=== PATIENT | male | born 1945 | race Two or more races ===

== ENCOUNTER 2017-01-15 09:42 | Inpatient (IN) | payer MEDICARE, MEDICAID ==
[~2017-01-15] VITALS: Ht 170.2 cm; Wt 106.3 kg
--- NOTE | 2017-01-15 09:50 | NUR ---
PT CAME IN FOR FEVER X 3 DAYS, WEAKNESS, MINIMAL SOB AND REPORTED TO HAVE SYNCOPAL EPISODE LAST WEEK AND HIT HIS NOSE AND MOUTH. DENIES HEAD TRAUMA. PT AOOX3. FEBRILE 100.0, SATING AT 85% RA. AT BS FOR EVAL. AND FAMILY FRIEND AT BS FOR INFO. SAFETY AND COMFORT MEASURES PROVIDED. WILL MONITOR.
[2017-01-15] MEDS ORDERED: IV NS 0.9% 1,000 ML BAG IV ONE (10:00)
[2017-01-15] MEDS ORDERED: IV SET PRIMARY PUMP SET 1 EA INFUS.SET MC ONE ×3 (10:08→15:25)
[2017-01-15] MEDS ORDERED: IV NS 0.9% 1,000 ML ONE (10:08)
--- NOTE | 2017-01-15 10:20 | NUR ---
IV ACCESS STARTED. PT MEDICATED ORDERED.
[2017-01-15 10:35] LABS: BASOPHILS # (AUTO) 0.2 /CMM (0.0-0.2); BASOPHILS % (AUTO) 1.9 % (0.0-2.0); EOSINOPHILS % (AUTO) 0.1 % (0.0-6.0); HEMATOCRIT 39 % (39-51); HEMOGLOBIN 13.3 g/dL (13.5-17.5); LYMPHOCYTES # (AUTO) 0.3 /CMM (0.8-4.8); LYMPHOCYTES % (AUTO) 3.4 % (20.0-44.0); MEAN CORPUSCULAR HEMOGLOBIN 30 PG (26.0-33.0); MEAN CORPUSCULAR HGB CONC 34 g/dl (31.0-36.0); MEAN CORPUSCULAR VOLUME 89 fL (80-96); MONOCYTES # (AUTO) 0.3 /CMM (0.1-1.30); NEUTROPHILS % (AUTO) 91.6 % (43.0-81.0); PLATELET COUNT (AUTO) 148 /CMM (150-450); RDW COEFFICIENT OF VARIATION 12.7 (11.5-15.0); RED BLOOD CELL COUNT(AUTO) 4.42 MIL/uL (4.5-6.0); WHITE BLOOD COUNT (AUTO) 9.8 K/uL (4.3-11.0)
[2017-01-15 10:38] LABS: APPEARANCE,URINE Clear (CLEAR); BILIRUBIN,URINE MODERATE (NEGATIVE); BLOOD, URINE Moderate Ery/uL (NEGATIVE); COLOR,URINE Amber (YELLOW); KETONES,URINE Negative (NEGATIVE); LEUKOCYTE ESTERASE ,URINE Negative (NEGATIVE); NITRITE, URINE Negative (NEGATIVE); PH,URINE 6.5 (5.0-8.0); PROTEIN,URINE >=300 mg/dl (NEGATIVE); UGLUCOSE Negative (NEGATIVE)
[2017-01-15 10:40] LABS: CALCIUM, SERUM 8.2 mg/dL (8.5-10.1); CREATININE 2.1 mg/dL (0.6-1.3); POTASSIUM 3.9 mmol/L (3.5-5.1)
[2017-01-15 10:46] LABS: ALBUMIN 3.2 g/dL (3.4-5.0); BILIRUBIN,DIRECT 1.9 mg/dL (0.0-0.2); BILIRUBIN,TOTAL 2.5 mg/dL (0.2-1.0); TOTAL PROTEIN, SERUM 7.4 g/dL (6.4-8.2)
[2017-01-15 10:50] LABS: TROPONIN I 0.11 ng/mL (0.00-0.056)
[2017-01-15 10:56] LABS: BACTERIA,URINE Few /HPF (None Seen); SQUAMOUS EPITHELIAL CELL,UR Rare /HPF (None Seen)
[2017-01-15] MEDS ORDERED: ASPIRIN 325 MG TABLET PO ONE (11:00)
[2017-01-15] MEDS ORDERED: CEFTRIAXONE 1GM BAG (ER ONLY) 1 GM/50 ML PIGGYBACK IV ONE (11:00)
[2017-01-15] MEDS ORDERED: ASPIRIN 325 MG TABLET ONE (11:06)
[2017-01-15] MEDS ORDERED: CEFTRIAXONE 1GM BAG (ER ONLY) 50 ML IV ONE (11:06)
[2017-01-15 11:07] LABS: BAND % (MANUAL) 59 % (0.0-5.0); LYMPHOCYTES % (MANUAL) 6 % (16-48); MONOCYTES % (MANUAL) 4 % (0-11.0); NEUTROPHILS % (MANUAL) 31 (42-76)
[2017-01-15 11:15] LABS: INR 5.95 (0.87-1.13)
[2017-01-15] MEDS ORDERED: ROSU40TA PO (11:17)
[2017-01-15] MEDS ORDERED: LEVO125T8 PO (11:17)
[2017-01-15] MEDS ORDERED: LABE100T PO (11:17)
[2017-01-15] MEDS ORDERED: MYRBETRIQ PO (11:17)
[2017-01-15] MEDS ORDERED: DEXL60CA3 PO (11:17)
[2017-01-15] MEDS ORDERED: VALS320T13 PO (11:17)
[2017-01-15] MEDS ORDERED: EZET10TA PO (11:17)
[2017-01-15] MEDS ORDERED: LINA290C PO (11:17)
[2017-01-15] MEDS ORDERED: TERA5CAP4 PO (11:17)
[2017-01-15] MEDS ORDERED: ICOS1CAP PO (11:17)
[2017-01-15] MEDS ORDERED: METF500T4 PO (11:17)
[2017-01-15] MEDS ORDERED: CLON0.3T PO (11:17)
[2017-01-15] MEDS ORDERED: WARF5TAB6 PO (11:17)
[2017-01-15] MEDS ORDERED: TERA2CAP4 PO (11:21)
--- NOTE | 2017-01-15 11:28 | NUR ---
US TECH AT BS.
[2017-01-15] MEDS ORDERED: ACETAMINOPHEN ES 500 MG TABLET PO ONE (11:30)
--- NOTE | 2017-01-15 11:46 | NUR ---
REPORT GIVEN TO MATEO TAYLOR FOR TELE ROOM 322-1
--- NOTE | 2017-01-15 12:10 | NUR ---
BLACK TOP SPREADER MACHINE OPERATOR OPENING RECEIVED PATIENT A./OX4 DENIES PAIN SOB, DIFFICULTY BREATHING. PATIENT TEMP 99.0 DIAPHORETIC. WALKING WITHOUT ASSISTANCE; STAND BY USED. PATIENT TELE BEING APPLIED AND VITALS BEING TAKEN. PATIENT ASKING TO EAT AND DRINK. WILL CONFIRM DIET WITH MD. PATIENT STATES NO NEEDS FAMILY MEMBERS AT BEDSIDE. PATIENT APPEARS STABLE AT THIS TIME.
[2017-01-15] MEDS ORDERED: IV NS 0.9% 1,000 ML IV PRN (12:36)
--- NOTE | 2017-01-15 12:56 | NUR ---
DENTAL FRONT OFFICE ASSISTANT NOTES NOTIFIED DR TIM COAG LEVELS ELEVATED. PATIENT TELE NSR WITH PAC'S AND PVC'S
[2017-01-15] MEDS: CARVEDILOL 12.5 MG TABLET PO SCH ×2 (13:00→21:00)
[2017-01-15] MEDS ORDERED: HYDROCODONE/APAP 5/325MG 1 EACH TABLET PO PRN (13:00)
[2017-01-15] MEDS ORDERED: ACETAMINOPHEN 325 MG TABLET PO PRN (13:00)
[2017-01-15] MEDS ORDERED: Z GUARD REMEDY 2 OZ OINT TP PRN (13:00)
[2017-01-15] MEDS ORDERED: DEXTROSE 50%-WATER 50 ML DISP.SYRIN IV PRN (13:00)
[2017-01-15] MEDS: NITROGLYCERIN 30 GM TUBE TP SCH ×2 (13:00→21:32)
[2017-01-15] MEDS ORDERED: MAG HYDROX/AL HYDROX/SIMETH 30 ML UDC PO PRN (13:00)
[2017-01-15] MEDS ORDERED: HYDROCODONE/APAP 10/325MG 1 EA TABLET PO PRN (13:00)
[2017-01-15] MEDS: CLONIDINE HCL 0.1 MG TABLET PO SCH (13:14)
[2017-01-15] MEDS: hydrALAZINE HCL 50 MG TABLET PO SCH ×2 (13:14→16:13)
--- NOTE | 2017-01-15 13:29 | NUR ---
GREEN PIPEFITTER NOTES NOTIFIED DR NIÑO PATIENT TEMP 101. NO NEW ORDERS PER MD. CONTINUE COOLING MEASURES. MORE ICE APPLIED INBETWEEN GROIN AND UNDER ARMS. FAN PLACED IN PATIENT ROOM
[2017-01-15 13:30] VITALS: BP 144/73
[2017-01-15 14:29] LABS: CHOLESTEROL 157 mg/dL (<200); LDL 41 mg/dL (0-99); THYROID STIMULATING HORMONE 7.667 uIU/mL (0.358-3.74); TRIGLYCERIDES 903 mg/dL (30-150)
[2017-01-15 14:46] LABS: HDL CHOLESTEROL < 10 mg/dL (40-60)
--- NOTE | 2017-01-15 14:50 | NUR ---
SILVER CLEANER NOTES WILL BRING PATIENT MEDICATIONS. PATIENT BEING TAKEN DOWN FOR CT'S
[2017-01-15] MEDS ORDERED: IV NS 0.9% 1,000 ML BAG IV PRN (15:00)
[2017-01-15] MEDS ORDERED: SECONDARY IV SET 1 EA INFUS.SET MC ONE ×2 (15:25→17:05)
[2017-01-15] MEDS: IV NS 0.9% 1,000 ML IV PRN (15:37)
[2017-01-15 15:54] LABS: PHOSPHORUS 2.1 mg/dL (2.5-4.9)
[2017-01-15 15:59] LABS: MAGNESIUM 1.1 mg/dL (1.8-2.4)
[2017-01-15 16:00] VITALS: BP 129/22
--- NOTE | 2017-01-15 16:00 | NUR ---
PATENT LEGAL ASSISTANT NOTES PATIENT MAG 1.1 CALLED TO NOTIFY. MESSAGE TO MD FOR ORDERS
[2017-01-15] MEDS: PIPERACILLIN /TAZOBACTAM 2.25 G in IV D5W 50 ML IV SCH ×2 (16:11→22:41)
[2017-01-15] MEDS ORDERED: Medication Not On Formulary EA (Icosapent Ethyl (Vascepa) 2 GM) PO SCH (17:00)
[2017-01-15] MEDS ORDERED: LABETALOL HCL (100MG) 100 MG TABLET PO SCH (17:00)
[2017-01-15] MEDS ORDERED: K PHOS NEUTRAL 250 MG TABLET PO ONE (17:00)
[2017-01-15] MEDS: Magnesium 1GM/D5W 100ML PREMIX 100 ML IV SCH ×4 (17:07→21:31)
[2017-01-15] MEDS: BLOOD SUGAR DIAGNOSTIC 1 EACH STRIP IN SCH ×2 (17:36→22:41)
--- NOTE | 2017-01-15 17:50 | NUR ---
POURED PIPE MAKER NOTES PATIENT STATES HIS SOB IS RETURNING SLIGHTLY. STATES HE HAS BEEN TAKING NASONEX DAILY TO HELP OPEN HIS AIRWAY. PER MD THIS IS OK TO ORDER. 2LPM NC ON FOR PATIENT COMFORT.
[2017-01-15] MEDS: INSULIN REGULAR, HUMAN 100 UNIT/ML 3 ML VIAL SQ PRN ×2 (18:00→22:48)
[2017-01-15] MEDS ORDERED: PIPERACILLIN /TAZOBACTAM 3.375 G in IV D5W 50 ML IV SCH (18:00)
--- NOTE | 2017-01-15 18:17 | NUR ---
WAXER TENDER NOTES CALLED PHARMACY TO HAVE NASONEX BROUGHT UP FOR PATIENT
--- NOTE | 2017-01-15 18:23 | NUR ---
RESERVOIR ENGINEERING ADVISOR CLOSING PATIENT STABLE NO COMPLICATIONS. SOB IS IMPROVED PER PATIENT. PRN NORCO GIVEN FOR NECK/SHOULDER MUSCLE PAIN THAT PATIENT HAS HAD SINCE HIS FALL. PATIENT FAMILY AT BEDSIDE. IVF ORDERED RUNNING. PATIENT AND FAMILY EDUCATED ON CARE PLAN AND UPDATE. NO NEEDS AT THIS TIME. CALL LIGHT IN REACH, BED LOWERED AND LOCKED, RAILS UPX3 FOR SAFETY AND WILL ENDORSE TO RN FOR LEIA. WILL ROUND PATIENT NEEDS UNTIL TRANSFER OF LEIA. EDUCATED PATIENT ON FALL PRECAUTIONS REMINDING NOT TO GET OUT OF BED UNLESS HE HAS SOMEONE STANDING NEXT TO HIM DUE TO RECENT FALL HX
[2017-01-15] MEDS: MOMETASONE FUROATE NASAL SUSP 17 GM BOTTLE SCH (18:25)
[2017-01-15 19:14] LABS: FREE PSA 1.79 ng/mL (0.00-45); PROSTATE SPECIFIC ANTIGEN SCR 17.09 ng/mL (0.00-4.00)
--- NOTE | 2017-01-15 19:30 | NUR ---
MS/RN OPENING NOTES PT AWAKE, ACCOMPANIED BY FAMILY: NAGI ([phone]) AND SON SAM ([phone]) PT IS ON 3LPM O2 VIA NC, BREATHING EVEN AND UNLABORED, NO S/S OF DISTRESS. DENIES PAIN. IV TO RIGHT HAND PATENT AND INTACT RUNNING IVF ORDERED. NO S/S OF INFILTRATION NOTED. 2 REMAINING BAGS OF MAGNESIUM NEEDED TO ADMINISTER. BED IN LOW/LOCKED POSITION, CALL LIGHT IN REACH. BED ALARM ON. WILL CONTINUE TO MONITOR
[2017-01-15 20:25] VITALS: BP 102/69
[2017-01-15] MEDS ORDERED: Medication Not On Formulary EA (Rosuvastatin Calcium (Crestor) 40 MG) PO SCH (22:00)
[2017-01-15] MEDS ORDERED: Medication Not On Formulary EA ([Myrbetriq] 25 MG) PO SCH (22:00)
[2017-01-15] MEDS ORDERED: EZETIMIBE 10 MG TABLET PO SCH (22:00)
[2017-01-15] MEDS: TERAZOSIN HCL 1 MG CAPSULE PO SCH (22:55)
--- NOTE | 2017-01-15 23:05 | NUR ---
MS/RN NOTES BLOOD PBMQZ=572, ADMINISTERED 3 UNITS PER SLIDING SCALE. SNACKS PROVIDED AT BEDSIDE. WILL CONTINUE TO MONITOR
[2017-01-16] VITALS (7 sets, daily range): BP systolic 103–124; BP diastolic 60–71
--- NOTE | 2017-01-16 | NUR ---
MS/RN NOTES PT ASLEEP, EASILY AROUSABLE TO NAME. PT NO LONGER IS DIAPHORETIC. NO FEVERS NOTED SO FAR. WILL CONTINUE TO MONITOR
--- NOTE | 2017-01-16 02:00 | NUR ---
MS/RN NOTES ARMIN MONROE NP ON THE FLOOR. INFORMED HIM OF 2 BLOOD CULTURE BOTTLES BEING POSITIVE FOR GRAM + COCCI IN CLUSTERS. ARMIN ASSESSED PT TO IDENTIFY A SOURCE. HE SAID HE WANTS TO HOLD OFF ON ADMINISTERING VANCOMYCIN UNTIL ALL 4 BOTTLES HAVE BEEN RESULTED. NO NEW ORDERS AT THIS TIME.
--- NOTE | 2017-01-16 02:31 | NUR ---
MS/RN NOTES NOTIFIED ARMIN CAR UNLOADER ABOUT ALL 4 BLOOD CX BOTTLES COMING BACK POSITIVE FOR GRAM + COCCI IN CLUSTERS. ARMIN MADE AWARE ABOUT BUN AND CR BEING 33 AND 2.1 HE ORDERED VANCOMYCIN DOSING PER PHARMACY IN AM. ORDERED NOTED AND CARRIED OUT.
[2017-01-16] MEDS: PIPERACILLIN /TAZOBACTAM 2.25 G in IV D5W 50 ML IV SCH ×4 (03:58→21:58)
--- NOTE | 2017-01-16 05:40 | NUR ---
MS/RN NOTES AMRIN MADE AWARE ABOUT TROPONIN'S TRENDING UP. ORDERED EKG AND SEND IMAGE TO HIM. ALSO TO MAKE SURE DR. JULIAN IS CONSULTED AND BMP IS ORDERED FOR AM. PT IS NOT COMPLAINING OF N/V, CHEST PAIN OR SOB AT THIS TIME. PT IS NOT DIAPHORETIC. IF ACUTE WA, CALL HIM STAT. ORDERS NOTED AND CARRIED.
--- NOTE | 2017-01-16 06:30 | NUR ---
MS/RN NOTES EKG COMPLETED AND RESULTS SENT TO ARMIN. CMP ORDERED FOR THIS AM AND DR. JULIAN HAS CONSULTED PT ALREADY. ARMIN MADE AWARE. NO NEW ORDERS AT THIS TIME. WILL CONTINUE TO MONITOR
--- NOTE | 2017-01-16 06:30 | NUR ---
MS/RN NOTES ARMIN RECEIVED IMAGE OF EKG AND STATED IT IS NOT AN ACUTE EKG. CAN WAIT FOR DR. JULIAN IN THE AM.
[2017-01-16 06:46] LABS: EOSINOPHILS % (AUTO) 0.1 % (0.0-6.0); HEMATOCRIT 32 % (39-51); HEMOGLOBIN 11.1 g/dL (13.5-17.5); LYMPHOCYTES # (AUTO) 0.6 /CMM (0.8-4.8); LYMPHOCYTES % (AUTO) 5.1 % (20.0-44.0); MEAN CORPUSCULAR HEMOGLOBIN 30 PG (26.0-33.0); MEAN CORPUSCULAR HGB CONC 35 g/dl (31.0-36.0); MEAN CORPUSCULAR VOLUME 88 fL (80-96); MONOCYTES # (AUTO) 0.6 /CMM (0.1-1.30); MONOCYTES % (AUTO) 5.2 % (2.0-12.0); NEUTROPHILS % (AUTO) 89.6 % (43.0-81.0); PLATELET COUNT (AUTO) 140 /CMM (150-450); RDW COEFFICIENT OF VARIATION 13.5 (11.5-15.0); RED BLOOD CELL COUNT(AUTO) 3.68 MIL/uL (4.5-6.0); WHITE BLOOD COUNT (AUTO) 11.1 K/uL (4.3-11.0)
[2017-01-16 06:47] LABS: ALANINE AMINOTRANSFERASE 379 U/L (12-78); ALBUMIN 2.7 g/dL (3.4-5.0); ALKALINE PHOSPHATASE 513 U/L (46-116); BILIRUBIN,TOTAL 2.9 mg/dL (0.2-1.0); CALCIUM, SERUM 7.7 mg/dL (8.5-10.1); CARBON DIOXIDE 25 mmol/L (21-32); CHLORIDE 104 mmol/L (98-107); CREATININE 2.1 mg/dL (0.6-1.3); GLUCOSE 127 mg/dL (74-106); MAGNESIUM 2.3 mg/dL (1.8-2.4); PHOSPHORUS 3.2 mg/dL (2.5-4.9); POTASSIUM 3.4 mmol/L (3.5-5.1); SODIUM SERUM 137 mmol/L (136-145); TOTAL PROTEIN, SERUM 6.4 g/dL (6.4-8.2); UREA NITROGEN, BLOOD 35 mg/dL (7-18)
[2017-01-16 06:54] LABS: PROTHROMBIN TIME 105.3 SECS (9.5-12.7)
[2017-01-16 06:55] LABS: CHOLESTEROL 137 mg/dL (<200); LDL 47 mg/dL (0-99); THYROID STIMULATING HORMONE 7.714 uIU/mL (0.358-3.74); TRIGLYCERIDES 891 mg/dL (30-150)
[2017-01-16 06:59] LABS: TROPONIN I 0.315 ng/mL (0.00-0.056)
[2017-01-16 07:00] LABS: HDL CHOLESTEROL < 10 mg/dL (40-60)
--- NOTE | 2017-01-16 07:00 | NUR ---
MS/RN NOTES BLOOD TLLOQ=756, ADMINISTERED 2UNITS OF INSULIN PER SLIDING SCALE.
--- NOTE | 2017-01-16 07:00 | NUR ---
MS/RN CLOSING NOTES ROSE FROM LAB CALLED REGARDING PT'S CRITICAL VB=927.3 AND INR=8.58. ENDORSED TO DAY SHIFT RN. PT AWAKE, A/OX4, ON 3LPM 02 VIA NC. BREATHING EVEN AND UNLABORED. DENIES CHEST PAIN, NO SOB OR DISTRESS NOTED. IV TO RIGHT HAND #20 RUNNING IVF ORDERED. NO S/S OF INFILTRATION NOTED. ON TELE MONITOR, SR WITH PAC'S AND PVC'S, HR=86. ALL SCHEDULED MEDS ADMINISTERED. BED IN LOW/LOCKED POSITION ,CALL LIGHT IN REACH. BED RAILS UP AND BED ALARM ON. ENCOURAGED PT TO USE CALL LIGHT TO ASK FOR ASSISTANCE IF NEEDING TO USE RESTROOM. MADE PT COMFORTABLE THROUGHOUT SHIFT ALL NEEDS MET AND ATTENDED. ENDORSED TO AM SHIFT LEIA.
[2017-01-16 07:01] LABS: INR 8.58 (0.87-1.13)
[2017-01-16] MEDS: LEVOTHYROXINE SODIUM 125 MCG TABLET PO SCH ×2 (07:11→09:02)
[2017-01-16] MEDS: BLOOD SUGAR DIAGNOSTIC 1 EACH STRIP IN SCH ×4 (07:11→22:04)
[2017-01-16] MEDS: PANTOPRAZOLE 40 MG TABLET.DR PO SCH ×2 (07:11→09:05)
[2017-01-16] MEDS: INSULIN REGULAR, HUMAN 100 UNIT/ML 3 ML VIAL SQ PRN ×3 (07:15→22:19)
[2017-01-16 07:31] LABS: ASPARTATE AMINOTRANSFERASE 558 U/L (15-37)
--- NOTE | 2017-01-16 07:40 | NUR ---
Tele/RN: abnormal Lab. trop level 0.38, INR 8.56, Dr. Patel made aware.
[2017-01-16] MEDS: ONDANSETRON HCL/PF 4 MG/2 ML VIAL IVP PRN (08:02)
[2017-01-16] MEDS: MOMETASONE FUROATE NASAL SUSP 17 GM BOTTLE SCH (08:59)
[2017-01-16] MEDS ORDERED: METFORMIN 500 MG TABLET PO SCH (09:00)
[2017-01-16] MEDS ORDERED: VALSARTAN 80 MG TABLET PO SCH (09:00)
[2017-01-16] MEDS ORDERED: WARFARIN SODIUM 5 MG TABLET PO SCH (09:00)
[2017-01-16] MEDS: NITROGLYCERIN 30 GM TUBE TP SCH ×2 (09:01→22:00)
[2017-01-16] MEDS: CARVEDILOL 12.5 MG TABLET PO SCH ×2 (09:02→21:00)
[2017-01-16] MEDS: hydrALAZINE HCL 50 MG TABLET PO SCH ×3 (09:04→17:49)
[2017-01-16] MEDS: CLONIDINE HCL 0.1 MG TABLET PO SCH (09:04)
[2017-01-16 10:49] LABS: BAND % (MANUAL) 12 % (0.0-5.0); LYMPHOCYTES % (MANUAL) 10 % (16-48); MONOCYTES % (MANUAL) 5 % (0-11.0); NEUTROPHILS % (MANUAL) 73 (42-76)
[2017-01-16] MEDS ORDERED: SECONDARY IV SET 1 EA INFUS.SET MC ONE (11:13)
[2017-01-16] MEDS: VANCOMYCIN 1.25 GM in IV D5W 500 ML IV SCH (11:16)
--- NOTE | 2017-01-16 11:16 | NUR ---
MS/RN: notes patient was seen by Dr. Betts.
[2017-01-16] MEDS ORDERED: POTASSIUM CHLORIDE 10 MEQ TABLET.SA PO ONE (11:30)
[2017-01-16] MEDS ORDERED: IV NS 0.9% 500 ML IV ONE (11:30)
--- NOTE | 2017-01-16 11:35 | NUR ---
MS/RN: notes patient alert and oriented x 4,denies chest pain, no shortness of breath noted, adequate oxygenation on 1.5 liter nasal cannula with saturation 96%. vss, afebrile, report gave to BRANDON Brock for continuity of care, patient's condition stable.
--- NOTE | 2017-01-16 11:35 | NUR ---
MS/RB: NOTES report gave to BRANDON Brock for continuity of care.
[2017-01-16] MEDS ORDERED: FEE PK DOSING 1 MIN EA MC ONE (11:54)
--- NOTE | 2017-01-16 12:00 | NUR ---
PT RESTING IN BED DENYING ANY PAIN OR DISTRESS.PT REFUSED TO EAT LUNCH.HELD HIS INSULIN.WITH CALL LIGHT PLACED WITHIN REACH.
[2017-01-16] MEDS ORDERED: IV SET PRIMARY PUMP SET 1 EA INFUS.SET MC ONE (12:03)
[2017-01-16] MEDS: IV NS 0.9% 1,000 ML IV PRN (12:04)
--- NOTE | 2017-01-16 18:00 | NUR ---
PT WAKES AND SLEEPS ALTERNATELY EVERY 10 MINS INSPITE OF TELLING HIM TO RELAX AND SLEEP.FAMILY AT BEDSIDE.CALLED DR VYAS AND MADE HIM AWARE OF PT'S ANXIETY WITH NO NEW ORDER.ENDORSED TO NIGHT NURSE TO FOLLOW UP WITH PMD.
--- NOTE | 2017-01-16 18:10 | NUR ---
ASSISTED PT TO THE TOILET AND PT'S SON REPORTED THAT THE PT BLEW HIS NOSE AND SMALL STRING OF BLACK BLOOD CLOTS CAME OUT OF HIS NOSE.PT'S STATED THAT THE PT USUALLY BLOWS HIS NOSE SO LOUD AND STRONG THAT THE NEIGHBOR IS ABLE TO HEAR IT.EXPLAINED THAT MAYBE IT'S FROM NASAL IRRITATION AND TO SHOW THE BLOOD CLOTS TO US NEXT TIME AND NOT TO THROW IT RIGHT AWAY.
--- NOTE | 2017-01-16 18:15 | NUR ---
DR XENIA VYAS MADE AWARE WITH NO NEW ORDER.
--- NOTE | 2017-01-16 19:30 | NUR ---
MS RN NOTES RECEIVED PT IN BED, AWAKE, VERBALLY RESPONSIVE TO STIMULI. DENIES ANY PAIN WHEN ASKED. NO ACUTE RESP. DISTRESS NOTED. ON OXYGEN AT 3LPM VIA NC. COMPLAINT OF STUFFY NOSE. HUMIDIFIER PLACED WITH OXYGEN. ASSISTED TO THE BATHROOM. PT BLEW HIS NOSE. MODERATE AMOUNT OF BLOOD CLOT NOTED CAME OUT FROM HIS RIGHT NARES. DAVID FAIR MADE AWARE WITH NO NEW ORDER. RIGHT HAND IV ACCESS NOTED, INTACT AND PATENT WITH IVF INFUSING WELL AT 75 CC/ HR. CLEAN AND DRY. WILL CONTINUE TO MONITOR.
[2017-01-16] MEDS: TERAZOSIN HCL 1 MG CAPSULE PO SCH (22:03)
[2017-01-17] VITALS (9 sets, daily range): BP systolic 113–146; BP diastolic 66–82
[2017-01-17] MEDS: ONDANSETRON HCL/PF 4 MG/2 ML VIAL IVP PRN ×2 (00:13→21:56)
--- NOTE | 2017-01-17 01:00 | NUR ---
MS RN NOTES PT COMPLAINT OF STUFFY NOSE. SALINE DROP GIVEN TO HIS NOSTRILS. PT BLEW HIS NOSE WITH SMALL AMOUNT OF BLOOD CLOT NOTED. NO ACUTE RESP. DISTRESS NOTED. PT FEELS RELIEF. WILL CONTINUE TO MONITOR.
[2017-01-17] MEDS: PIPERACILLIN /TAZOBACTAM 2.25 G in IV D5W 50 ML IV SCH ×4 (04:01→20:13)
--- NOTE | 2017-01-17 05:00 | NUR ---
MS RN NOTES PT FEELS RESTED AND ABLE TO SLEEP FOR FEW HOURS WITHOUT COMPLAINT OF SHORTNESS OF BREATH. HOB ELEVATED AT ALL TIMES. ASSISTED TO THE BATHROOM. WILL CONTINUE TO MONITOR.
[2017-01-17] MEDS: INSULIN REGULAR, HUMAN 100 UNIT/ML 3 ML VIAL SQ PRN ×3 (06:59→17:48)
[2017-01-17] MEDS: BLOOD SUGAR DIAGNOSTIC 1 EACH STRIP IN SCH ×4 (06:59→21:42)
[2017-01-17 07:10] LABS: *SPE A/G RATIO 1.1 (0.7-1.7); *SPE ALBUMIN 3.1 g/dL (2.9-4.4); *SPE ALPHA-1-GLOBULIN 0.3 g/dL (0.0-0.4); *SPE ALPHA-2-GLOBULIN 0.5 g/dL (0.4-1.0); *SPE BETA GLOBULIN 1.1 g/dL (0.7-1.3); *SPE GLOBULIN, TOTAL 2.9 g/dL (2.2-3.9); *SPE M-SPIKE Not Observed g/dL (Not Observed)
--- NOTE | 2017-01-17 07:20 | NUR ---
RN MS OPENING NOTES RECEIVED PATIENT IN BED, AWAKE, HEAD OF BED ELEVATED, NO SOB OR DISTRESS NOTED, ON O2 3 LPM VIA NC AND TOLERATED WELL. A/O X 2-3, VERBALLY RESPONSIVE AND ABLE TO MAKE NEEDS KNOWN. IV INTACT AND PATENT. KEPT PATIENT CLEAN AND COMFORTABLE IN BED, CALL LIGHT WITHIN PATIENT REACH. WILL CONTINUE TO MONITOR ACCORDINGLY.
--- NOTE | 2017-01-17 07:26 | NUR ---
MS RN NOTES PT RESTING WELL. NO SIGNIFICANT CHANGES NOTED. ALL NEEDS ATTENDED PROMPTLY. WILL ENDORSE TO THE NEXT SHIFT.
[2017-01-17 07:55] LABS: HEMATOCRIT 31 % (39-51); HEMOGLOBIN 10.7 g/dL (13.5-17.5); LYMPHOCYTES # (AUTO) 0.9 /CMM (0.8-4.8); LYMPHOCYTES % (AUTO) 5.9 % (20.0-44.0); MEAN CORPUSCULAR HEMOGLOBIN 30 PG (26.0-33.0); MEAN CORPUSCULAR HGB CONC 35 g/dl (31.0-36.0); MEAN CORPUSCULAR VOLUME 87 fL (80-96); MONOCYTES % (AUTO) 6.9 % (2.0-12.0); NEUTROPHILS # (AUTO) 12.7 /CMM (1.8-8.9); NEUTROPHILS % (AUTO) 87.2 % (43.0-81.0); PLATELET COUNT (AUTO) 134 /CMM (150-450); RDW COEFFICIENT OF VARIATION 13.7 (11.5-15.0); RED BLOOD CELL COUNT(AUTO) 3.52 MIL/uL (4.5-6.0); WHITE BLOOD COUNT (AUTO) 14.6 K/uL (4.3-11.0)
[2017-01-17 08:16] LABS: ALBUMIN 2.5 g/dL (3.4-5.0); BILIRUBIN,TOTAL 3.6 mg/dL (0.2-1.0); CALCIUM, SERUM 7.3 mg/dL (8.5-10.1); CREATININE 3.3 mg/dL (0.6-1.3); MAGNESIUM 2.1 mg/dL (1.8-2.4); PHOSPHORUS 3.4 mg/dL (2.5-4.9); POTASSIUM 3.5 mmol/L (3.5-5.1); TOTAL PROTEIN, SERUM 6.3 g/dL (6.4-8.2)
[2017-01-17 08:25] LABS: INR > 10.00 (0.87-1.13); PROTHROMBIN TIME > 100.0 SECS (9.5-12.7)
[2017-01-17] MEDS: MAGNESIUM HYDROXIDE 30 ML UDC PO PRN (08:46)
[2017-01-17] MEDS: hydrALAZINE HCL 50 MG TABLET PO SCH ×3 (08:47→17:00)
[2017-01-17] MEDS: MOMETASONE FUROATE NASAL SUSP 17 GM BOTTLE SCH (08:48)
[2017-01-17] MEDS: NITROGLYCERIN 30 GM TUBE TP SCH ×2 (08:49→21:42)
[2017-01-17] MEDS ORDERED: PHYTONADIONE INJ 10 MG/1 ML AMPUL IM ONE (10:30)
[2017-01-17] MEDS: VANCOMYCIN 1.25 GM in IV D5W 500 ML IV SCH (10:48)
[2017-01-17] MEDS: CARVEDILOL 12.5 MG TABLET PO SCH ×2 (10:49→21:43)
[2017-01-17] MEDS: CLONIDINE HCL 0.1 MG TABLET PO SCH (10:50)
[2017-01-17] MEDS ORDERED: SECONDARY IV SET 1 EA INFUS.SET MC ONE ×2 (10:59→20:18)
[2017-01-17 11:08] LABS: CREATINE KINASE MB 3.1 ng/mL (0-3.6)
[2017-01-17 11:33] LABS: GAMMA GLUTAMYL TRANSFERASE 339 U/L (5-85)
[2017-01-17 11:34] LABS: INR > 10.00 (0.87-1.13); PROTHROMBIN TIME > 100.0 SECS (9.5-12.7)
--- NOTE | 2017-01-17 11:40 | NUR ---
RN NOTES CALLED DR. WINTER TO REPORT CRITICAL PT/INR INSTRUCTED WILL AWAIT CALL BACK
--- NOTE | 2017-01-17 11:50 | NUR ---
RN NOTES RECEIVED CALL BACK FROM DR. WINTER TO REPORT CRITICAL PT/INR RESULTS, AWARE VITAMIN K WAS ADMINISTERED PER DR. VYAS'S ORDERS NO FURTHER ORDERS AT THIS TIME PT TO BE GIVEN FFP SOON READY, WILL CONTINUE TO MONITOR AT THIS TIME
[2017-01-17] MEDS ORDERED: PLATELET IV SET 1 EA INFUS.SET MC ONE ×2 (13:52→16:20)
--- NOTE | 2017-01-17 14:30 | NUR ---
RN MS NOTES PATIENT ON STABLE CONDITION WENT TO HIDA SCAN
--- NOTE | 2017-01-17 19:30 | NUR ---
RN NOTES RECEIVED PT. AWAKE ON BED, A/OX4, CITIZEN OF [place] AND [place] AND [place] SPEAKING, FAMILY AT BEDSIDE, PT/ NOSE IS BLEEDING LIGHTLY MD IS AWARE, PUT PRESSURE ON PT'S NOSE, DENIES PAIN, NO SOB, CALL LIGHT WITHIN REACH, SIDERAILS UPX2 CONTINUE TOP MONITOR
--- NOTE | 2017-01-17 19:39 | NUR ---
RN MS CLOSING NOTES ALL NEEDS PROVIDED, ATTENDED AND ANTICIPATED. KEPT PATIENT CLEAN AND COMFORTABLE IN BED, CALL LIGHT WITHIN PATIENT REACH. WILL CONTINUE TO MONITOR ACCORDINGLY. ENDORSED TO NEXT SHIFT RN TO CONTINUE CARE.
[2017-01-17] MEDS: IV NS 0.9% 1,000 ML IV PRN (20:12)
[2017-01-17] MEDS: TERAZOSIN HCL 1 MG CAPSULE PO SCH (21:42)
--- NOTE | 2017-01-17 22:09 | NUR ---
RN NOTES COMPLAINED OF FEELING NAUSEOUS- ZOFRAN 2MG IV GIVEN ORDERED, V/S STABLE
--- NOTE | 2017-01-17 22:10 | NUR ---
RN NOTES BLOOD SUGAR-135 PT REFUSED COVERAGE BECAUSE HE DOESN'T WANT TOT EAT
[2017-01-18] VITALS (11 sets, daily range): BP systolic 115–135; BP diastolic 57–83
[2017-01-18] MEDS: PIPERACILLIN /TAZOBACTAM 2.25 G in IV D5W 50 ML IV SCH ×3 (04:18→17:30)
[2017-01-18 04:53] LABS: APPEARANCE,URINE CLOUDY (CLEAR); BILIRUBIN,URINE NEGATIVE (NEGATIVE); BLOOD, URINE 2+ Ery/uL (NEGATIVE); COLOR,URINE YELLOW (YELLOW); KETONES,URINE NEGATIVE (NEGATIVE); LEUKOCYTE ESTERASE ,URINE NEGATIVE (NEGATIVE); NITRITE, URINE NEGATIVE (NEGATIVE); PROTEIN,URINE 2+ mg/dl (NEGATIVE); UGLUCOSE NEGATIVE (NEGATIVE); UROBILINOGEN,URINE 0.2 EU/dL (0.2)
[2017-01-18 04:59] LABS: URINE TOTAL PROTEIN 196.3 mg/dL (0-11.9)
[2017-01-18 05:00] LABS: BACTERIA,URINE None seen /HPF (None Seen); SQUAMOUS EPITHELIAL CELL,UR Few /HPF (None Seen); WBC,URINE 0-2 /HPF (0-3)
[2017-01-18 05:01] LABS: URINE AMORPHOUS URATE Many /HPF (None Seen)
[2017-01-18 05:58] LABS: EOSINOPHIL,URINE None Seen
--- NOTE | 2017-01-18 06:44 | NUR ---
RN NOTES AWAKE, DENIES PAIN, NO SOB, MORNING CARE RENDERED, PT.NEEDS ATTENDED, AT BEDSIDE
--- NOTE | 2017-01-18 07:30 | NUR ---
MS RN AM NOTES RECEIVED PT. AWAKE ON BED, A/OX4, [place] AND [place] SPEAKING, AT BEDSIDE, PT/ NOSE IS BLEEDING LIGHTLY MD IS AWARE, INSTRUCTED NOT TO PICK NOSE, SLIGHT PRESSURE/ICE PACK IN PLACE, ON 2LP O2 NC, NOT IN ANY DISTRESS, NO SOB, RESPIRATION UNLABORED. VERY ANXIOUS, DENIES PAIN, NS AT 75 ML/HR INFUSING TO RT HAND. SITE CLEAR. BED TO CHAIR, INTACT SKIN. CALL LIGHT WITHIN REACH, SIDERAILS UPX2, WILL CONT TO MONITOR.
[2017-01-18 08:19] LABS: BASOPHILS % (AUTO) 0.3 % (0.0-2.0); HEMATOCRIT 30 % (39-51); HEMOGLOBIN 10.4 g/dL (13.5-17.5); LYMPHOCYTES # (AUTO) 0.7 /CMM (0.8-4.8); MEAN CORPUSCULAR HEMOGLOBIN 30 PG (26.0-33.0); MEAN CORPUSCULAR HGB CONC 35 g/dl (31.0-36.0); MEAN CORPUSCULAR VOLUME 86 fL (80-96); MONOCYTES % (AUTO) 7.2 % (2.0-12.0); NEUTROPHILS # (AUTO) 12.2 /CMM (1.8-8.9); NEUTROPHILS % (AUTO) 87.5 % (43.0-81.0); PLATELET COUNT (AUTO) 128 /CMM (150-450); RDW COEFFICIENT OF VARIATION 13.8 (11.5-15.0); RED BLOOD CELL COUNT(AUTO) 3.44 MIL/uL (4.5-6.0); WHITE BLOOD COUNT (AUTO) 13.9 K/uL (4.3-11.0)
[2017-01-18] MEDS: BLOOD SUGAR DIAGNOSTIC 1 EACH STRIP IN SCH ×4 (08:27→22:58)
[2017-01-18 08:39] LABS: PROTHROMBIN TIME 49.8 SECS (9.5-12.7)
[2017-01-18 08:41] LABS: INR 4.24 (0.87-1.13)
[2017-01-18 08:49] LABS: ALBUMIN 2.5 g/dL (3.4-5.0); BILIRUBIN,DIRECT 3.8 mg/dL (0.0-0.2); BILIRUBIN,TOTAL 4.7 mg/dL (0.2-1.0); CALCIUM, SERUM 7.5 mg/dL (8.5-10.1); CREATININE 4.8 mg/dL (0.6-1.3); MAGNESIUM 2.5 mg/dL (1.8-2.4); PHOSPHORUS 3.5 mg/dL (2.5-4.9); POTASSIUM 3.6 mmol/L (3.5-5.1); TOTAL PROTEIN, SERUM 6.5 g/dL (6.4-8.2)
[2017-01-18] MEDS: MOMETASONE FUROATE NASAL SUSP 17 GM BOTTLE SCH (09:00)
[2017-01-18] MEDS: hydrALAZINE HCL 50 MG TABLET PO SCH ×3 (09:27→16:34)
[2017-01-18] MEDS: LEVOTHYROXINE SODIUM 125 MCG TABLET PO SCH (09:27)
[2017-01-18] MEDS: PANTOPRAZOLE 40 MG TABLET.DR PO SCH (09:27)
[2017-01-18] MEDS: CLONIDINE HCL 0.1 MG TABLET PO SCH (09:28)
[2017-01-18] MEDS: CARVEDILOL 12.5 MG TABLET PO SCH ×2 (09:29→21:02)
--- NOTE | 2017-01-18 09:30 | NUR ---
MS RN NOTES ADMINISTERED DUE MEDS. UNABLE TO ADMINISTER NASAL SPRAY, PT STILL WITH NASAL BLEEDING EPISODE. STARTED ZOSYN IV. INFUSING WELL.
[2017-01-18] MEDS: NITROGLYCERIN 30 GM TUBE TP SCH ×2 (09:37→21:02)
--- NOTE | 2017-01-18 10:11 | NUR ---
MS RN NOTES VANCO IV NOT ADMINISTERED. VANCO T - 22. PHARMACY AWARE.
--- NOTE | 2017-01-18 11:52 | NUR ---
MS RN NOTES ACCUCHECK DONE. BS 130 MG/DL. NO INSULIN COVERAGE GIVEN.
[2017-01-18] MEDS: IPRATROPIUM NEB FS 0.5 MG/2.5 ML AMPUL.NEB NEB SCH ×3 (12:00→20:47)
--- NOTE | 2017-01-18 12:58 | NUR ---
MS RN NOTES PER DR. XENIA VYSA, PATIENT FOR POSSIBLE TRANSFER TO THE [facility] FOR HIGHER LEVEL OF CARE.
[2017-01-18] MEDS: ALBUTEROL FS 2.5 MG/3 ML VIAL.NEB NEB SCH ×3 (13:30→20:47)
[2017-01-18] MEDS ORDERED: PLATELET IV SET 1 EA INFUS.SET MC ONE ×2 (14:43→20:06)
--- NOTE | 2017-01-18 15:13 | NUR ---
MS RN NOTES STARTED FFP I UNIT. VSS.
[2017-01-18 16:03] LABS: BAND % (MANUAL) 5 % (0.0-5.0); LYMPHOCYTES % (MANUAL) 4 % (16-48); MONOCYTES % (MANUAL) 10 % (0-11.0); NEUTROPHILS % (MANUAL) 81 (42-76)
--- NOTE | 2017-01-18 16:05 | NUR ---
MS RN NOTES FFP 1 UNIT COMPLETED. PT'S FFP SCANNED 3 TIMES AND SAVED AND APPEARS TRANSFUSED ON WOW BUT STILL APPEARS ISSUED ON [employer]. ROSEANN CHARGE NURSE AWARE.
--- NOTE | 2017-01-18 17:30 | NUR ---
MS RN NOTES STARTED ZOSYN IV.
[2017-01-18] MEDS: INSULIN REGULAR, HUMAN 100 UNIT/ML 3 ML VIAL SQ PRN ×2 (17:34→23:04)
--- NOTE | 2017-01-18 17:34 | NUR ---
MS RN NOTES ACCUCHECK DONE. BS 154 MG/DL. ADMINISTERED 2 UNITS HUM R PER SLIDING SCALE.
--- NOTE | 2017-01-18 18:23 | NUR ---
MS RN CLOSING NOTES PT RESTING IN BED COMFORTABLY, A/OX4, [place] AND [place] SPEAKING, AT BEDSIDE, PT/ NOSE IS STILL BLEEDING LIGHTLY MD IS AWARE, INSTRUCTED NOT TO PICK NOSE, SLIGHT PRESSURE/ICE PACK IN PLACE, ON 2LP O2 NC, NOT IN ANY DISTRESS, NO SOB, RESPIRATION UNLABORED. DENIES PAIN, NS AT 75 ML/HR INFUSING TO RT HAND. SITE CLEAR. BED TO CHAIR, INTACT SKIN. CALL LIGHT WITHIN REACH, SIDERAILS UPX2, ALL NEEDS MET. PM CARE DONE EARLIER. WILL ENDORSE TO NEXT SHIFT FOR LEIA.
[2017-01-18] MEDS ORDERED: PHYTONADIONE 5 MG TABLET PO ONE ×2 (19:30→20:00)
--- NOTE | 2017-01-18 19:30 | NUR ---
MS RN OPENING NOTES: PATIENT IN BED, AOX3, ON ROOM AIR AT THIS TIME, BREATHING EVEN AND UNLABORED. PATIETN NOTED TO HAVE GAUZE PACKING OVER HIS LEFT NARES, DRESSING NOT SATURATED AT THIS TIME. HOB MAINTAINED ELEVATED, ICE PACK PLACED OVER HIS HEAD. PIV OVER R HAND G20 INTACT AND PATENT TO FLUSH. PROVIDED FOR COMFORT AND SAFETY, FAMILY AT BEDSIDE. BED IN LOWEST NAD LOCKED POSITION. SIDERAILS UP X3. WILL CONT TO MONITOR.
[2017-01-18 19:42] LABS: INR 2.43 (0.87-1.13); PROTHROMBIN TIME 27.5 SECS (9.5-12.7)
[2017-01-18] MEDS ORDERED: PHYTONADIONE INJ 10 MG/1 ML AMPUL SQ ONE ×2 (20:00)
--- NOTE | 2017-01-18 20:20 | NUR ---
RN NOTES: DR RYAN MOORE CAME TO SEE/ ASSESS PT. PER MD, [employer] INR: <2.0. MD MADE AWARE OF LATEST PT INR RESULT: PT: 27.5, INR: 2.43. NEW ORDER MADE FOR VIT K PO. NOTED AND CARRIED OUT. WILL CONT TO MONITOR.
[2017-01-18] MEDS: IV NS 0.9% 1,000 ML IV PRN (21:01)
--- NOTE | 2017-01-18 22:10 | NUR ---
RN NOTES: STARTED INFUSING 1 UNIT FFP PER ORDER. EXPLAINED TO PATIENT SYMPTOMS OF TRANSFUSION REACTION, VERBALIZED AGREEMENT. VS CHECKED, WNL. WILL CONT TO MONITOR.
--- NOTE | 2017-01-18 22:48 | NUR ---
RN NOTES: COMPLETED TRANFUSION OF 1 UNIT FFP, VS STABLE. WILL CONT TO MONITOR.
[2017-01-18] MEDS: TERAZOSIN HCL 1 MG CAPSULE PO SCH (22:59)
--- NOTE | 2017-01-18 23:07 | NUR ---
RN NOTES: PT'S BS IS 138, HOWEVER, REFUSED TO TAKE INSULIN AND HAS POOR PO INTAKE.
[2017-01-19] VITALS: BP 126/72
--- NOTE | 2017-01-19 00:10 | NUR ---
RN NOTES: PATIENT NOTED TO HAVE EPISTAXIS OVER LEFT NARES. NASAL PACKING REPLACED. ICE PACK PLACED OVER NOSE. HOB MAINTAINED ELEVATED. WILL CONT TO MONITOR.
[2017-01-19 03:28] VITALS: BP 135/78
[2017-01-19] MEDS: PIPERACILLIN /TAZOBACTAM 2.25 G in IV D5W 50 ML IV SCH ×3 (04:40→20:52)
[2017-01-19] MEDS: BLOOD SUGAR DIAGNOSTIC 1 EACH STRIP IN SCH ×4 (06:42→21:02)
[2017-01-19 06:45] LABS: HEMATOCRIT 27 % (39-51); HEMOGLOBIN 9.7 g/dL (13.5-17.5); MEAN CORPUSCULAR HEMOGLOBIN 31 PG (26.0-33.0); MEAN CORPUSCULAR HGB CONC 36 g/dl (31.0-36.0); MEAN CORPUSCULAR VOLUME 87 fL (80-96); PLATELET COUNT (AUTO) 117 /CMM (150-450); RDW COEFFICIENT OF VARIATION 13.5 (11.5-15.0); RED BLOOD CELL COUNT(AUTO) 3.17 MIL/uL (4.5-6.0); WHITE BLOOD COUNT (AUTO) 15.6 K/uL (4.3-11.0)
[2017-01-19 06:56] LABS: INR 1.75 (0.87-1.13); PROTHROMBIN TIME 19.4 SECS (9.5-12.7)
[2017-01-19 07:16] LABS: ALBUMIN 2.4 g/dL (3.4-5.0); BILIRUBIN,TOTAL 4.5 mg/dL (0.2-1.0); CALCIUM, SERUM 7.7 mg/dL (8.5-10.1); CREATININE 5.7 mg/dL (0.6-1.3); MAGNESIUM 2.6 mg/dL (1.8-2.4); POTASSIUM 3.5 mmol/L (3.5-5.1); TOTAL PROTEIN, SERUM 6.5 g/dL (6.4-8.2)
--- NOTE | 2017-01-19 07:20 | NUR ---
MS RN CLOSING NOTES: PATIENT SITTING ON CHAIR, AOX4, ON ROOM AIR, BREAHTING EVEN AND UNLABORED. PIV OVER R HAND G20 INTACT AND PATENT, INFUSING WELL WITH NS RUNNING AT 75 ML/HR. BLOOD SUGAR CHECKED AT 120 MG/DL, NO INSULIN COVERAGE NEEDED. PATIENT STILL HAS GAUZE PACKING OVER LEFT NARES, BUT CLEAN, AND WITHOUT SIGNS OF PROFUSE BLEEDING NOW. DUE MEDS GIVEN. PROVIDED FOR COMFORT AND SAFETY. AT BEDSIDE. ENDORSE TO AM RNMATEO, FOR LEIA.
--- NOTE | 2017-01-19 07:30 | NUR ---
MS BRANDON OPENING RECEIVED PATIENT A/OX4 WITH AT BEDSIDE. PATIENT DENIES SOB OR DIFFICULTY BREATHING AT THIS TIME BUT STATES THIS COMES AND GOES WITH ACTIVITY. DENIES PAIN. PER RN PATIENT HAD BEEN HAVING NOSE BLEEDS ON AND OFF FOR OVER A DAY BUT AT THIS TIME NO ACTIVE BLEEDING. PATIENT IVF RUNNING ORDERED. STABLE ON ROOM AIR. ADVISED TO NOT USE OXYGEN IF NOT NEEDED THIS MAY DRY THE NOSE OUT FURTHER. PATIENT STATES HIS ABDOMEN IS FULL OF AIR AND IS DISTENDED AND FIRM ON TOUCH. MD AWARE. PATIENT STATES NO NEEDS AT THIS TIME AND LEFT WITH CALL LIGHT IN REACH, BED LOWERED AND LOCKED, RAILS UPX3 FOR SAFETY AND WILL ROUND Q2H OR LESS PER NEEDS
[2017-01-19] MEDS: IPRATROPIUM NEB FS 0.5 MG/2.5 ML AMPUL.NEB NEB SCH ×5 (07:35→20:42)
[2017-01-19] MEDS: ALBUTEROL FS 2.5 MG/3 ML VIAL.NEB NEB SCH ×5 (07:35→20:42)
[2017-01-19 07:38] LABS: BAND % (MANUAL) 4 % (0.0-5.0); LYMPHOCYTES % (MANUAL) 8 % (16-48); MONOCYTES % (MANUAL) 15 % (0-11.0); NEUTROPHILS % (MANUAL) 73 (42-76)
[2017-01-19 08:00] VITALS: BP 150/77
[2017-01-19] MEDS: LEVOTHYROXINE SODIUM 125 MCG TABLET PO SCH (08:34)
[2017-01-19] MEDS: hydrALAZINE HCL 50 MG TABLET PO SCH ×3 (08:34→16:34)
[2017-01-19] MEDS: PANTOPRAZOLE 40 MG TABLET.DR PO SCH (08:34)
[2017-01-19] MEDS: CARVEDILOL 12.5 MG TABLET PO SCH ×2 (08:34→21:03)
[2017-01-19] MEDS: CLONIDINE HCL 0.1 MG TABLET PO SCH (08:34)
[2017-01-19] MEDS: MOMETASONE FUROATE NASAL SUSP 17 GM BOTTLE SCH (08:34)
[2017-01-19] MEDS: NITROGLYCERIN 30 GM TUBE TP SCH ×2 (08:35→20:57)
[2017-01-19] MEDS: MAGNESIUM HYDROXIDE 30 ML UDC PO PRN (08:37)
[2017-01-19] MEDS: ONDANSETRON HCL/PF 4 MG/2 ML VIAL IVP PRN (08:43)
[2017-01-19 08:51] LABS: THYROID STIMULATING HORMONE 3.173 uIU/mL (0.358-3.74)
[2017-01-19] MEDS ORDERED: VANCOMYCIN 1 GM in IV D5W 250 ML IV SCH (10:00)
--- NOTE | 2017-01-19 11:00 | NUR ---
MS RN NOTES WAITING FOR HEPARIN TO BE DELIVERED BY PHARMACY TO START. PER DR XENIA VYAS CONTINUE HEPARIN UNTIL 4HRS BEFORE HE IS TO HAVE THE BIOPSY. PER XRAY PATIENT IS TO BE NPO 12 HOURS BEFORE SURGERY AND SINCE HE ATE BREAKFAST TODAY THEY SAID HE WILL HAVE TO WAIT UNTIL SUNDAY FOR BIOPSY..NOTIFIED MD MICHAELS
[2017-01-19] MEDS ORDERED: IV SET PRIMARY PUMP SET 1 EA INFUS.SET MC ONE (11:41)
--- NOTE | 2017-01-19 11:45 | NUR ---
MS RN NOTES WAITING FOR PHARM TO BRING HEP DRIP
[2017-01-19] MEDS: HEPARIN SODIUM, PORCINE 5000 UNITS/1 ML VIAL IV ONE ×2 (11:56→13:35)
--- NOTE | 2017-01-19 12:00 | NUR ---
MS RN NOTES ORDERED APTT FOR HEP DRIP TO START
[2017-01-19] MEDS: LACTULOSE 10 G/15 ML UDC (PYXIS) PO SCH ×3 (12:15→16:26)
--- NOTE | 2017-01-19 12:45 | NUR ---
MS RN NOTES CALLED LAB TO SEE IF RESULTS READY FOR APTT PER LAB THE MACHINE IS DOWN IT WILL BE AN HOUR
[2017-01-19] MEDS: INSULIN REGULAR, HUMAN 100 UNIT/ML 3 ML VIAL SQ PRN ×3 (12:50→21:30)
--- NOTE | 2017-01-19 13:20 | NUR ---
MS RN NOTES PATIENT JUST HAD A BM; BLACK LOOKING. NOTIFIED DR XENIA VYAS PER MD CONTINUE WITH THE HEPARIN EVEN WITH THE BLACK STOOLS AND RECENT HX OF BLOODY NOSE
[2017-01-19] MEDS: HEPARIN INFUSION/D5W 500 ML IV PRN (13:34)
--- NOTE | 2017-01-19 14:00 | NUR ---
MS RN NOTES MESSAGE TO DR JULIAN OFFICE TO CONFIRM OK TO CONTINUE HEP DRIP WITH BLACK STOOLS.
--- NOTE | 2017-01-19 14:15 | NUR ---
MS RN NOTES PER DR JULIAN CONTINUE WITH HEPARIN DRIP. NO NEW ORDERS
--- NOTE | 2017-01-19 14:35 | NUR ---
MS RN NOTES PER DR XENIA MOHR FOR BIOPSY TO BE COMPLETED ON SUNDAY. NPO MIDNIGHT SUNDAY. PER ORDER CBC AND UPDATED COAGS FOR SUNDAY
[2017-01-19 16:00] VITALS: BP 130/82
[2017-01-19] MEDS: IV NS 0.9% 1,000 ML IV PRN (16:35)
--- NOTE | 2017-01-19 19:00 | NUR ---
MS RN NOTES PATIENT AND FAMILY NOT WANTING TO SIGN CONSENTS FOR BX'S OR BONE MARROW BX UNTIL THEY SPEAK WITH XENIA AGAIN. PER XENIA HE WILL SPEAK WITH THEM IN THE AM. PATIENT NOTIFIED.
--- NOTE | 2017-01-19 19:20 | NUR ---
MS RN CLOSING PATIENT STABLE NO COMPLICATIONS. BREATHING TREATMENTS FOR INCREASED LABORED RESPIRATIONS. PATIENT STATES NO NEEDS. ALL DUE MEDS GIVEN AND ALL NEEDS MET. PATIENT ON 1LPM NASAL CANNULA DUE TO ROOM AIR BEING LABILE 91-93%; PATIENT TOLERATES WELL. CARE ENDORSED TO RN AT THIS TIME. CALL LIGHT IN REACH, BED LOWERED AND LOCKED, RAILS UPX3 FOR SAFETY.
--- NOTE | 2017-01-19 19:30 | NUR ---
MS RN OPENING NOTES: PATIENT SITTING ON CHAIR, AOX4, ON O2 AT 2 LPM VIA NC. BREATHING EVEN AT RATE OF 22-24 PER MINUTE, WITH SLIGHT WHEEZING HEARD UPON UPPER LUNG [place]TH. PATIENT HAS PIV OVER R HAND G20 INTACT AND PATENT, INFUSING WELL WITH NS RUNNIGN AT 75 ML/HR. PATIENT HAS DELON MIDLINE INFUSING WELL WITH HEPARIN DRIP, CURRENTLY AT 1800 UNITS/HR TITRATION. PROVIDED FOR COMFORT AND SAFETY. MONITORED FOR ACTIVE BLEEDING. NO ACTIVE SIGNS OF BLEEDING OF THIS TIME. WILL CONT TO MONITOR.
[2017-01-19 20:00] VITALS: BP 127/63
[2017-01-19 20:05] VITALS: BP 127/63
--- NOTE | 2017-01-19 20:30 | NUR ---
RN NOTES: PATIENT'S PTT: 66. NO CHANGE IN DOSAGE OF HEPARIN DRIP INDICATED AT THIS TIME. NO SIGNS OF ACTIVE BLEEDING NOTED ON PATIENT. WILL CONT TO MONITOR.
[2017-01-19] MEDS: TERAZOSIN HCL 1 MG CAPSULE PO SCH (21:03)
--- NOTE | 2017-01-19 22:00 | NUR ---
RN NOTES: PATIENT'S BLOOD SUGAR CHECKED AT 140 MG/DL. INSULIN COVERAGE HAS BEEN REFUSED BY PATIENT AT THIS TIME. RISKS EXPLAINED, AND UNDERSTOOD BY PATIENT AND SON, AT BEDSIDE. WILL CONT TO MONITOR.
[2017-01-20] VITALS: BP 139/66
[2017-01-20 01:25] VITALS: BP 134/71
[2017-01-20] MEDS ORDERED: HEPARIN INFUSION/D5W 500 ML IV ONE (03:15)
[2017-01-20] MEDS ORDERED: IV SET PRIMARY PUMP SET 1 EA INFUS.SET MC ONE (03:17)
[2017-01-20] MEDS: PIPERACILLIN /TAZOBACTAM 2.25 G in IV D5W 50 ML IV SCH ×3 (04:31→23:25)
[2017-01-20] MEDS: HEPARIN INFUSION/D5W 500 ML IV PRN ×2 (04:35→22:41)
--- NOTE | 2017-01-20 04:37 | NUR ---
RN NOTES: REPLACED HEPARIN BAG 25,000 U/ 500 ML D5W, STILL ON 1800 UNITS/HR TITRATION. FOR RPT PTT THIS AM. NO OBVIOUS SIGNS OF ACTIVE BLEEDING OF THIS TIME. WILL CONT TO MONITOR.
[2017-01-20 05:59] LABS: HEMATOCRIT 27 % (39-51); HEMOGLOBIN 9.5 g/dL (13.5-17.5); MEAN CORPUSCULAR HEMOGLOBIN 30 PG (26.0-33.0); MEAN CORPUSCULAR HGB CONC 35 g/dl (31.0-36.0); MEAN CORPUSCULAR VOLUME 86 fL (80-96); PLATELET COUNT (AUTO) 156 /CMM (150-450); RDW COEFFICIENT OF VARIATION 14.3 (11.5-15.0); RED BLOOD CELL COUNT(AUTO) 3.15 MIL/uL (4.5-6.0); WHITE BLOOD COUNT (AUTO) 23.4 K/uL (4.3-11.0)
[2017-01-20] MEDS: IV NS 0.9% 1,000 ML IV PRN (05:59)
[2017-01-20 06:13] LABS: ALBUMIN 2.2 g/dL (3.4-5.0); CALCIUM, SERUM 7.5 mg/dL (8.5-10.1); CREATININE 6.5 mg/dL (0.6-1.3); MAGNESIUM 2.7 mg/dL (1.8-2.4); POTASSIUM 3.6 mmol/L (3.5-5.1); TOTAL PROTEIN, SERUM 6.3 g/dL (6.4-8.2)
[2017-01-20 06:22] LABS: INR 1.3 (0.87-1.13); PROTHROMBIN TIME 14.2 SECS (9.5-12.7)
[2017-01-20 06:33] LABS: BAND % (MANUAL) 2 % (0.0-5.0); LYMPHOCYTES % (MANUAL) 7 % (16-48); MONOCYTES % (MANUAL) 4 % (0-11.0); NEUTROPHILS % (MANUAL) 87 (42-76)
--- NOTE | 2017-01-20 06:46 | NUR ---
RN NOTES: CRITICAL LAB RESULT OF BUN : 82 RECEIVED FROM LAB. DAVID TIM NP MADE AWARE. NNO AT THIS TIME.
--- NOTE | 2017-01-20 06:50 | NUR ---
RN NOTES: PATIENT HAS 1 BM OF FORMED, BLACKISH COLORED STOOL.
[2017-01-20] MEDS: BLOOD SUGAR DIAGNOSTIC 1 EACH STRIP IN SCH ×4 (06:55→21:39)
[2017-01-20] MEDS: INSULIN REGULAR, HUMAN 100 UNIT/ML 3 ML VIAL SQ PRN ×3 (06:57→17:39)
--- NOTE | 2017-01-20 07:00 | NUR ---
MS RN CLOSING NOTES: PATIENT IN BED, AOX4, ON O2 AT 2 LPM VIA NC, SLIGHT WHEEZING HEARD UPON EXPIRATION, INFORMED RT. PATIENT WITH HEPARIN DRIP INFUSING PATENTLY OVER DELON MIDLINE AT CURRENT TITRATION OF 1800 UNITS/HR. NEW PTT RESULT THIS 0700 AM :62, NO CHANGE IN DOSE RATE. PTT ORDERED FOR TOMORROW AT 0500 AM. PIV OVER R HAND NITACT NAD INFUSING WELL WITH NS RUNNING AT 75 ML/HR. CRITICAL LAB RESULT OF BUN: 82 RELAYED TO DAVID TIM NP, NO NEW ORDER GIVEN AT THIS TIME. DUE MEDS GIVEN. PROVIDED FOR COMFORT AND SAFETY. SON AT BEDSIDE. WILL ENDORSE TO AM RN FOR LEIA.
[2017-01-20] MEDS: IPRATROPIUM NEB FS 0.5 MG/2.5 ML AMPUL.NEB NEB SCH ×4 (07:23→19:51)
[2017-01-20] MEDS: ALBUTEROL FS 2.5 MG/3 ML VIAL.NEB NEB SCH ×4 (07:24→19:51)
--- NOTE | 2017-01-20 07:25 | NUR ---
RN MS NOTES PATIENT ALERT AND ORIENTED X4, NO COMPLAINT OF PAIN/DISCOMFORT, NO S/SX OF DISTRESS, ON HEPARIN GTT, INFUSING AND TOLERATING WELL, SON AT BEDSIDE FOR SUPPORT, BREATHING TX ADMINISTERED BY RT, RECEIVED ASSISTANCE WITH ADLS, CALL LIGHT WITHIN REACH, WILL CONTINUE TO MONITOR.
[2017-01-20 08:00] VITALS: BP 135/96
[2017-01-20] MEDS: LEVOTHYROXINE SODIUM 125 MCG TABLET PO SCH (08:45)
[2017-01-20] MEDS: PANTOPRAZOLE 40 MG TABLET.DR PO SCH (08:45)
[2017-01-20] MEDS: LACTULOSE 10 G/15 ML UDC (PYXIS) PO SCH ×3 (08:45→17:00)
[2017-01-20] MEDS: NITROGLYCERIN 30 GM TUBE TP SCH ×2 (08:46→21:26)
[2017-01-20] MEDS: CARVEDILOL 12.5 MG TABLET PO SCH ×2 (08:46→21:26)
[2017-01-20] MEDS: CLONIDINE HCL 0.1 MG TABLET PO SCH (08:46)
[2017-01-20] MEDS: hydrALAZINE HCL 50 MG TABLET PO SCH ×3 (08:46→17:25)
[2017-01-20] MEDS: MOMETASONE FUROATE NASAL SUSP 17 GM BOTTLE SCH (08:56)
--- NOTE | 2017-01-20 13:00 | NUR ---
RN MS NOTES PATIENT SEEN BY DR. XENIA VYAS AND EXPLAINED THE BENEFITS AND RISKS OF BIOPSIES (BONE MARROW, LIVER AND KIDNEY) RECOMMENDED. FAMILY AND PATIENT AGREED TO HAVE IT DONE.
--- NOTE | 2017-01-20 14:30 | NUR ---
RN MS NOTES PATIENT SIGNED CONSENT FORMS FOR BONE MARROW BIOPSY, LIVER AND RENAL BIOPSY. ALL DUE MEDS GIVEN ORDERED, ON HEPARIN DRIP AND INFUSING WELL, PATIENT IS SCHEDULED TO HAVE A BONE MARROW BIOPSY TOMORROW MORNING AT 10AM, AND DR. MOORE WOULD LIKE TO HOLD THE HEPARIN DRIP AT 6AM. PATIENT AND FAMILY AWARE.
[2017-01-20] MEDS ORDERED: BUMETANIDE INJ 6 MG in IV NS 0.9% 36 ML IV ONE (15:30)
[2017-01-20 15:48] VITALS: BP 112/68
[2017-01-20] MEDS ORDERED: SECONDARY IV SET 1 EA INFUS.SET MC ONE (17:26)
--- NOTE | 2017-01-20 18:42 | NUR ---
RN MS NOTES PATIENT SITTING ON A CHAIR, ON O2 AT 2LPM VIA NC WITH SPO2 > 92%, NO SOB NOTED, PATIENT IS CURRENTLY RECEIVING BUMEX DIURETIC AT THIS TIME, NO ADVERSE REACTION NOTED, PATIENT IS ALSO ON HEPARIN DRIP, NO COMPLAINT OF PAIN OR DISCOMFORT, FAMILY AT BEDSIDE, SAFETY MEASURES IN PLACED, ALL NEEDS ATTENDED, WILL ENDORSE TO GEOSCIENCE SPECIALIST FOR LEIA.
--- NOTE | 2017-01-20 19:25 | NUR ---
RN OPEN NOTES RECEIVED PATIENT AWAKE IN BED WITH AT BEDSIDE. A./O X4. NO SIGNS OF DISTRESS OR DISCOMFORT. ON 2LPM O2 VIA NC. IV ACCESS IN R HAND WITH BUMEX CURRENTLY INFUSING AND DELON MIDLINE WITH HEPARIN INFUSING @ 1800U/HR. BED IN LOW LOCKED POSITION WITH SIDE RAILS X2. CALL LIGHT WITHIN REACH. WILL CONTINUE TO MONITOR.
[2017-01-20 20:00] VITALS: BP 138/59
[2017-01-20] MEDS: TERAZOSIN HCL 1 MG CAPSULE PO SCH (21:26)
[2017-01-20 23:12] LABS: CALCIUM, SERUM 7.6 mg/dL (8.5-10.1); CREATININE 7.2 mg/dL (0.6-1.3); MAGNESIUM 2.4 mg/dL (1.8-2.4); POTASSIUM 3.3 mmol/L (3.5-5.1)
[2017-01-21] VITALS (10 sets, daily range): BP systolic 121–187; BP diastolic 65–98
[2017-01-21] MEDS: PIPERACILLIN /TAZOBACTAM 2.25 G in IV D5W 50 ML IV SCH (05:45)
--- NOTE | 2017-01-21 06:10 | NUR ---
RN NOTES STOPPED HEPARIN DRIP @0600 PER MD ORDERS. PATIENT COMPLAIN OF HEADACHE. VSS. BP 142/82 P71. A/OX4. NO SIGNS OF DISTRESS. PATIENT ASKED TO WALK AROUND UNIT, ADVISED ONCE ZOSYN FINISHES INFUSING I WILL DISCONNECT HIM FROM IV SO HE CAN AMBULATE. WILL CONTINUE TO MONITOR. Addendum: 01/21/17 at 0950 by ODETTE MOJICA RN CHARGE NURSE MADE AWARE OF PATIENT COMPLAINT OF HEADACHE. PATIENT HAS NO PAIN MEDS ORDERED AT THIS TIME AND IS ALSO NPO. PER CHARGE, WE WILL INFORM INCOMING MD.
[2017-01-21] MEDS: BLOOD SUGAR DIAGNOSTIC 1 EACH STRIP IN SCH (06:28)
--- NOTE | 2017-01-21 07:15 | NUR ---
RN CLOSING NOTES PER PATIENT HAS SUDDENLY BEEN UNABLE TO PRONOUNCE WORDS, UPON ASSESSMENT, PATIENT AWAKE IN BED ALERT AND ABLE TO FOLLOW COMMANDS. SPEECH HAS BECOME SLURRED. HAND GRASP IS SLIGHTLY WEAK ON RIGHT SIDE. RIGHT PUPIL IS FIXED AND LEFT PUPIL IS DILATED. PATIENT SEEMS SHORT OF BREATH, PUT PATIENT BACK ON 2L NC AND RAISED HOB. BP 151/71 P61 02-98% ON 2L. AM SHIFT RN IS AWARE OF CHANGE IN PATIENT CONDITION. THERE WERE NO SIGNIFICANT CHANGES THROUGHOUT THE NIGHT. ALL NEEDS WERE MET. BED IN LOW LOCKED POSITION WITH SIDE RAILS X2. CALL LIGHT WITHIN REACH. ENDORSED TO AM SHIFT FOR LEIA.
--- NOTE | 2017-01-21 07:20 | NUR ---
RN MS NOTES USABILITY SPECIALIST NURSE AT BEDSIDE, RECEIVED REPORT OF PATIENT'S CHANGE IN CONDITION, PATIENT AT BEDSIDE, ALERT AND ORIENTED X1, NOTED WITH SLURRED SPEECH, HAND GRASP WEAK ON RIGHT SIDE, RIGHT PUPIL IS FIXED AND LEFT PUPIL DILATED, VITAL SIGNS OBTAINED AND STABLE, NOTED WITH WHEEZING BUT SPO2 IS AT 98% WITH 2LPM VIA NC. CHANGES REPORTED TO CHARGE NURSES AND WAS INFORMED TO CALL MD.
--- NOTE | 2017-01-21 07:25 | NUR ---
RN NOTES CHARGE NURSE PREMA AND TODD HAVE BEEN MADE AWARE OF CHANGE IN PATIENTS CONDITION. ADVISED MYSELF AND EDEE TO CALL DR. XENIA VYAS FOR CT SCAN.
[2017-01-21] MEDS: ALBUTEROL FS 2.5 MG/3 ML VIAL.NEB NEB SCH (07:35)
[2017-01-21] MEDS: IPRATROPIUM NEB FS 0.5 MG/2.5 ML AMPUL.NEB NEB SCH (07:35)
[2017-01-21 07:50] LABS: ALBUMIN 2.3 g/dL (3.4-5.0); BILIRUBIN,TOTAL 2.8 mg/dL (0.2-1.0); CALCIUM, SERUM 7.6 mg/dL (8.5-10.1); CREATININE 7.4 mg/dL (0.6-1.3); POTASSIUM 3.6 mmol/L (3.5-5.1); TOTAL PROTEIN, SERUM 6.8 g/dL (6.4-8.2)
--- NOTE | 2017-01-21 08:00 | NUR ---
CODE STROKE. PT FOUND TO BE RESPONSIVE TO PAILFUL STIMULUS ONLY, NOTED TO BE SHORT OB BREATH WITH ACCESSORY MUSCLES USE. L PUPIL 4+ R PUPIL 1 SLUGGISH. RIGHT UPPER AND LOWER EXTREMITY FLACCID. A BEDSIDE STATES THAT PT LAST WAS SEEN NORMAL AT 6 AM AND COMPLAINED OF SEVERE HEADACHE. Addendum: 01/21/17 at 1237 by BRIGITTE JONES RN PT PLACED ON NON-REBREATHER. ABG OBTAINED. PT WAS INTUBATED BY DR LIRA AT 0820, TRANSFERED TO CT AND ICU ROOM 261 AT 0855.
[2017-01-21 08:17] LABS: ABG BASE EXCESS -10.3 mmol/L; ABG OXYGEN SATURATION 99.3 % (92.0-98.5); ABG PCO2 32.7 mmHg (35.0-45.0); ABG PH 7.288 (7.350-7.450); ABG PO2 451.9 mmHg (75.0-100.0); AaDO2 228.4 mmHg; COHb 0.8 % (0.5-1.5); MetHb 0.3 % (0.0-1.5); O2Hb 98.2 % (94.0-97.0); SITE, ABG Right Brachial; VENT MODE, BG NON REBREATHER
--- NOTE | 2017-01-21 08:25 | NUR ---
RN MS NOTES 07 PL[address] CALL TO DR. XENIA VYAS, NO ANSWER. APPROXIMATELY 0730 WENT BACK TO THE PATIENT AND FOUND PATIENT SITTING ON THE EDGE OF THE BED WITH NURSES WHO VOMITED GREEN CONTENTS, VITAL SIGNS BP 141/90 PULSE 60 RESP 20 SPO2 96% ON O2 AT 2 LITERS. PATIENT STILL ALERT AND RESPONSIVE, PUPILS NO CHANGE, WHEEZING MORE PROMINENT, NOTED WITH LABORED BREATHING, CHARGE NURSE INFORMED, PLACED A CALL TO [facility] TO ZEESHAN GOODSON APPROX. 0745, WAITING FOR A CALL BACK FROM DR. XENIA VYAS. PATIENT BECAME UNRESPONSIVE, BREATHING LABORED, BP 162/97 P 60, 0800 CODE STROKE INITIATED, CODE STROKE TEAM NURSING CENTRAL OFFICE OPERATOR ADRIAN, ICU NURSE BRIGITTE, RT, AND DR. ALEMAN CAME AT 0805, ABG DRAWN, PATIENT PLACED ON TELE MONITOR, PATIENT IS THEN PREPARED FOR INTUBATION, 0820 ADMINISTERED ETOMIDATE AND ROCURONIUM, DR. ALEMAN INTUBATED PATIENT SIZE 8, SPO2 99% BP 163/98 P88. STABLE WITH AMBUBAG, BROUGHT DOWN TO RADIOLOGY FOR CT SCAN, AND THEN TO ICU IN ROOM 261, REPORT GIVEN TO ANATOLIY MONTES.
[2017-01-21] MEDS ORDERED: IV SET PRIMARY PUMP SET 1 EA INFUS.SET MC ONE ×3 (08:28→11:17)
[2017-01-21] MEDS ORDERED: PROPOFOL 100 ML IV PRN (08:30)
--- NOTE | 2017-01-21 08:55 | NUR ---
INTUBATED BY ER DOCTOR. ETT 8.0CM AT 24 CM LIPS. NO RESPIRATORY DISTRESS NOTED, PT TOLERATES VENT SETTING. RED OUTLET PLUGGED IN, AMBU BAG AT BEDSIDE. WILL CONTINUE MONITOR THE PATIENT CLOSELY. Addendum: 01/21/17 at 0857 by RACHEL ONOFRE RT Amended: Links added.
--- NOTE | 2017-01-21 09:00 | NUR ---
CCT NOTIFIED AND WERVALY UPDATED ON CT RESULTS L OCCIPITAL LOBE HEMATOMA, 8MM MIDLINE SHIFT, LEFT SUBDURAL HEMATOMA. WILL FAX PAPER REPOT ONCE DICTATED.
[2017-01-21 09:31] LABS: TROPONIN I 0.055 ng/mL (0.00-0.056)
[2017-01-21 09:45] LABS: ALBUMIN 2.3 g/dL (3.4-5.0); BILIRUBIN,TOTAL 2.8 mg/dL (0.2-1.0); CALCIUM, SERUM 7.4 mg/dL (8.5-10.1); POTASSIUM 3.4 mmol/L (3.5-5.1); TOTAL PROTEIN, SERUM 6.8 g/dL (6.4-8.2)
--- NOTE | 2017-01-21 09:52 | NUR ---
CRITICAL RESULTS FROM HEAD CT[facility]/ACCEPTANCE TO TRANSFER PT TO [facility] VS NOTIFYING NEUROSURGEON DR. BENNETT.
--- NOTE | 2017-01-21 10:00 | NUR ---
IESHA CORMIER PELEG, KASHANI HERE TO SEE PT. DOCTORS NOTIFIED, DR DILLON WILL NOT BE ABLE TO TAKE PT TO SURGERY. AWAITING ON DR BERG RESPONSE.
[2017-01-21 10:06] LABS: ABG BASE EXCESS -9.2 mmol/L; ABG OXYGEN SATURATION 91.7 % (92.0-98.5); ABG PCO2 47.5 mmHg (35.0-45.0); ABG PH 7.204 (7.350-7.450); ABG PO2 77.3 mmHg (75.0-100.0); AaDO2 153.3 mmHg; COHb 0.9 % (0.5-1.5); SITE, ABG Right Radial
[2017-01-21 10:12] LABS: CREATININE 7.5 mg/dL (0.6-1.3)
[2017-01-21] MEDS ORDERED: IV Sodium Chloride 3% 500 ML 500 ML IV ONE (10:30)
[2017-01-21] MEDS: POTASSIUM CL. PREMIX PERIPHER. 50 ML IV SCH ×2 (10:51→11:32)
[2017-01-21] MEDS ORDERED: LEVETIRACETAM (500MG) 500 MG in IV NS 0.9% 100 ML IV SCH (11:00)
[2017-01-21] MEDS ORDERED: BUMETANIDE INJ 0.25 MG/ML VIAL IV ONE (11:00)
[2017-01-21] MEDS ORDERED: MANNITOL 12.5 GM/50 ML VIAL IV ONE (11:00)
[2017-01-21] MEDS ORDERED: DESMOPRESSIN 20 MCG in IV NS 0.9% 50 ML IV ONE (11:00)
--- NOTE | 2017-01-21 11:02 | NUR ---
RT PER DR MASCORRO POST ABG RESULTS. VT INCREASED TO 650, RR INCREASED TO 24. Addendum: 01/21/17 at 1104 by TOD SMALL RT Amended: Links added.
[2017-01-21 11:17] LABS: CALCIUM, SERUM 7.4 mg/dL (8.5-10.1); POTASSIUM 3.5 mmol/L (3.5-5.1)
[2017-01-21 11:19] LABS: CREATININE 7.6 mg/dL (0.6-1.3)
[2017-01-21] MEDS ORDERED: hydrALAZINE HCL IV 20 MG VIAL ONE (11:24)
[2017-01-21] MEDS ORDERED: hydrALAZINE HCL IV 20 MG VIAL IV PRN (11:30)
--- NOTE | 2017-01-21 11:30 | NUR ---
SHADI CATH R GR INSERTED BY Jerry VYAS. JUWAN IN PROGRESS BY DR PARKER. KLC AND NA REPLACEMENT IN PROGRESS, BUMEX, AND APRESOLINE IV ORDERED, DDIVP, KEPPRA AND MANNITOL INFUSIONS INITIATED. PT REMAINS RESPONSIVE ONLY TO STRONG TACTILE STIMULUS, BY MOVING HIS LEFT UPPER EXTREMITY.
[2017-01-21] MEDS ORDERED: ROCURONIUM BROMIDE 50 MG/5 ML IV ONE (11:45)
[2017-01-21] MEDS ORDERED: ETOMIDATE 2 MG/ML VIAL IV ONE (11:45)
[2017-01-21] MEDS ORDERED: NORMAL SALINE 10 ML DISP.SYRIN IV ONE (11:46)
[2017-01-21] MEDS ORDERED: D5W IV PRN (12:00)
[2017-01-21] MEDS ORDERED: MANNITOL IV PRN (12:00)
--- NOTE | 2017-01-21 12:00 | NUR ---
REPORT TO [facility] RN.
--- NOTE | 2017-01-21 13:00 | NUR ---
REPORT TO DELANEY TAYLOR AT [facility].
[2017-01-21 13:07] LABS: ANTI-MITOCHONDRIAL AB 3.2 Units (0.0-20.0)
[2017-01-21] MEDS ORDERED: VANCOMYCIN 1 GM in IV D5W 250 ML IV SCH (22:00)
[2017-01-22 12:09] LABS: *ANCA ATYPICAL p-ANCA <1:20 titer (Neg:<1:20); *ANCA CYTOPLASMIC (C-ANCA) <1:20 titer (Neg:<1:20); *ANCA PERINUCLEAR (P-ANCA) <1:20 titer (Neg:<1:20); *ANCANTIMYELOPEROXIDASE (MPO) <9.0 U/mL (0.0-9.0); *ANCANTIPROTEINASE 3 (PR-3) AB <3.5 U/mL (0.0-3.5)
[2017-01-23 07:15] LABS: COMPLEMENT C3, SERUM 140 mg/dL (82-167); COMPLEMENT C4, SERUM 35 mg/dL (14-44)
== END 2017-01-21 12:15 | disposition short-term general hospital (02) | DRG 871 ==
LOC: ER 09:44 → TELE 11:21 → MED 01-16 09:19 → ICU 01-21 08:24
PROVIDERS: ADMIT Contractor; ATTEND Contractor
PROC: 30233K1 Transfusion of Nonautologous Frozen Plasma into Peripheral Vein, Percutaneous Approach (ICD-10-PCS; 2017-01-17)
PROC: 5A1935Z Respiratory Ventilation, Less than 24 Consecutive Hours (ICD-10-PCS; principal; 2017-01-21)
PROC: 06HM33Z Insertion of Infusion Device into Right Femoral Vein, Percutaneous Approach (ICD-10-PCS; 2017-01-21)
PROC: B54BZZA Ultrasonography of Right Lower Extremity Veins, Guidance (ICD-10-PCS; 2017-01-21)
PROC: 0BH17EZ Insertion of Endotracheal Airway into Trachea, Via Natural or Artificial Opening (ICD-10-PCS; 2017-01-21)
DX: A41.9 Sepsis, unspecified organism (principal); I21.4 Non-ST elevation (NSTEMI) myocardial infarction; N17.0 Acute kidney failure with tubular necrosis; G92 Toxic encephalopathy; K72.00 Acute and subacute hepatic failure without coma; I61.9 Nontraumatic intracerebral hemorrhage, unspecified; I62.00 Nontraumatic subdural hemorrhage, unspecified; G04.90 Encephalitis and encephalomyelitis, unspecified; J96.02 Acute respiratory failure with hypercapnia; D68.9 Coagulation defect, unspecified; B17.9 Acute viral hepatitis, unspecified; N39.0 Urinary tract infection, site not specified; I76 Septic arterial embolism; E87.1 Hypo-osmolality and hyponatremia; J98.11 Atelectasis; R65.20 Severe sepsis without septic shock; E03.9 Hypothyroidism, unspecified; E11.22 Type 2 diabetes mellitus with diabetic chronic kidney disease; E66.9 Obesity, unspecified; E78.5 Hyperlipidemia, unspecified; N18.9 Chronic kidney disease, unspecified; Z95.2 Presence of prosthetic heart valve; F17.210 Nicotine dependence, cigarettes, uncomplicated; B95.61 Methicillin susceptible Staphylococcus aureus infection as the cause of diseases classified elsewhere; D64.9 Anemia, unspecified; D69.6 Thrombocytopenia, unspecified; D69.1 Qualitative platelet defects; E66.01 Morbid (severe) obesity due to excess calories; I25.2 Old myocardial infarction; I51.7 Cardiomegaly; I71.2 Thoracic aortic aneurysm, without rupture; K40.90 Unilateral inguinal hernia, without obstruction or gangrene, not specified as recurrent; K44.9 Diaphragmatic hernia without obstruction or gangrene; K57.50 Diverticulosis of both small and large intestine without perforation or abscess without bleeding; N32.3 Diverticulum of bladder; N40.1 Benign prostatic hyperplasia with lower urinary tract symptoms; Z68.35 Body mass index [BMI] 35.0-35.9, adult; I12.9 Hypertensive chronic kidney disease with stage 1 through stage 4 chronic kidney disease, or unspecified chronic kidney disease
CPT/HCPCS: 31720; 36415; 36600; 70450-TC; 71010-TC; 76700-TC; 78226; 80048-TC; 80053-TC; 80061-TC; 80074; 80076-TC; 80202-TC; 81000-TC; 82105; 82140-TC; 82306; 82550-TC; 82553-TC; 82570-TC; 82728-TC; 82746; 82803-TC; 82962-TC; 82977-TC; 83516; 83520; 83540-TC; 83605-TC; 83615-TC; 83690-TC; 83735-TC; 84100-TC; 84153-TC; 84154-TC; 84155; 84155-TC; 84165; 84300-TC; 84439-TC; 84443-TC; 84478-TC; 84484-TC; 85025-TC; 85045-TC; 85385-TC; 85610-TC; 85730-TC; 86256; 86376; 86850-TC; 87040-TC; 87081-TC; 87086-TC; 93307-TC; 93312-TC; 93979-TC; 94002-TC; 94799-TC; 99082-TC; A4216; A4606; A9537; G6039-TC; J0360; J0696; J1644; J1815; J1953; J2150; J2405; J2543; J2597; J3370; J3430; J3475; J3480; J3490; J7030; J7040; J7060; P9017-BL; Z7610

== ENCOUNTER → 2021-12-02 | Outpatient (CLI) | payer MEDICARE, OTHER ==
[~2021-12-02] MED LIST: CLON0.3T PO; DEXL60CA3 PO; EZET10TA16 PO; ICOS1CAP PO; LABE100T5 PO; LEVO125T8 PO; LINA290C PO; METF-440 PO; MYRBETRIQ PO; ROSU40TA PO; TERA2CAP4 PO; VALS320T16 PO; WARF-58 PO
== END | disposition home or self-care (01) ==
LOC: CT 11:06
PROVIDERS: ATTEND Internal Medicine Interventional Cardiology
DX: I25.10 Atherosclerotic heart disease of native coronary artery without angina pectoris (principal); I51.7 Cardiomegaly; I70.0 Atherosclerosis of aorta; I71.2 Thoracic aortic aneurysm, without rupture; K57.30 Diverticulosis of large intestine without perforation or abscess without bleeding; K44.9 Diaphragmatic hernia without obstruction or gangrene; M47.814 Spondylosis without myelopathy or radiculopathy, thoracic region; M19.011 Primary osteoarthritis, right shoulder; M19.012 Primary osteoarthritis, left shoulder
CPT/HCPCS: 71250-TC